=== PATIENT | male | born 1985 | race Asian ===

== ENCOUNTER 2018-02-21 14:37 | Emergency (ER) | payer SELFPAY ==
[~2018-02-21] VITALS: Ht 154.9 cm; Wt 63.6 kg
[2018-02-21] MEDS ORDERED: METF500T6 PO (14:42)
[2018-02-21] MEDS ORDERED: GLIP10 PO (14:42)
[2018-02-21] MEDS ORDERED: VITAD1000 PO (14:42)
[2018-02-21] MEDS ORDERED: LISI-660 PO (14:42)
[2018-02-21] MEDS ORDERED: ASPI81 PO (14:42)
[2018-02-21 16:46] VITALS: BP 121/69
== END 2018-02-21 16:56 | disposition home or self-care (01) ==
LOC: EMS 14:40
DX: E11.9 Type 2 diabetes mellitus without complications (principal); I10 Essential (primary) hypertension; Z76.0 Encounter for issue of repeat prescription; Z79.899 Other long term (current) drug therapy
CPT/HCPCS: 99283